=== PATIENT | female | born 1970 | race Caucasian/White ===

== ENCOUNTER 2021-06-01 05:51 | Observation (INO) ==
--- NOTE | 2021-05-17 15:04 | PAT Medication Instructions ---
Medication Instructions Date of Service May 17, 2021 Home Medications naproxen sodium 220 mg tablet (Aleve) 220 mg PO BID PRN Continue as directed naproxen sodium 220 mg tablet (Aleve) 220 mg PO BID PRN Other Notes If you have any questions please call us at [phone] or [phone] or [phone] or [phone]
--- NOTE | 2021-05-18 09:09 | Anesthesiology Consultation ---
Date of Service May 18, 2021 Assessment & Plan (1) Encounter for pre-operative examination: Chart Review Chart Review: Acceptable Risk for Surgery (pending preop Covid testing results ) and Patient seen in Pre Admission Testing - Check test AM DOS Per PAT appt on 05/18/21, patient admits to camping in [place]- social distances- does not wear mask. No known Covid positive contacts or Covid related symptoms. Pt denies known Covid in the past 90 days. Pt is NOT vaccinated for Covid. Preop Covid testing scheduled 05/30/21= will await results. Educated on importance of self quarantining, social distancing and wearing mask in public both for the patient after Covid testing done Teaching & Discussion Pre-Anesthesia Teaching/Discussion Notes: Instructed NPO after midnight before surgery,except medications with 15 cc of water. Medication instructions provided according to the [facility] guidelines. History Surgery Operation Date: 06/01/21 12:05 Proposed Procedures p C4-C7 Anterior Cervical Discectomy and Fusion, Spinal Cord Monitoring - Celso Ramirez DO Height/Weight Height: 5 ft 6.25 in Weight: 69 kg Allergies Allergy/AdvReac Type Severity Reaction Status Date / Time clindamycin Allergy Severe Difficulty Verified 05/16/21 16:37 Breathing indomethacin Allergy Severe Hives Verified 05/16/21 16:37 Penicillins Allergy Severe Anaphylaxis Verified 05/16/21 16:37 acetaminophen AdvReac Severe Vertigo, Verified 05/17/21 14:42 blurred vision, severe headache oxycodone AdvReac Mild Vomiting Verified 05/17/21 14:42 Medications Home Medications Medication Instructions Recorded Confirmed Last Taken naproxen sodium 220 mg tablet 220 mg PO BID PRN 05/16/21 05/16/21 Unknown (Aleve) Past Medical History Medical History Chronic back pain Chronic neck pain Degenerative disc disease Osteoarthritis Exercise / Class Metabolic Activity II 4-5 Yardwork/Stairs/Walk up hill (one flight of stairs - no chest pain or SOB ) Past Family History Family History Other No family history of adverse response to anesthesia Past Surgical History Surgical History History of breast biopsy History of dilatation and curettage D&E Hx of oral surgery (~1996) Insertion of 3 implants and shattered maxilla repair (from an accident) Past Anesthesia History No Hx of Anesthesia Complications (with exception to one episode of slow to wake with D&E- no reintubation or ICU stay ) and No Family Hx of Anesthesia Complications History of PONV No Hx of PONV and Hx of Motion Sickness Social History Smoking Status: Current every day smoker tobacco type: cigarettes Smoking cigarettes per day: 10 cigarettes/day Do You Dip or Chew Tobacco: No Hx Alcohol Use: Yes Alcohol type: wine alcohol intake frequency: a few times a month Hx Substance Use: No substance use type: does not use Review of Systems Patient denies chest pain, shortness of breath, dyspnea on exertion, reflux, cough, wheezing, palpitations. No hx of seizures, stroke, ME, apnea/snoring. No hx of blood clots or blood transfusions Physical Exam Vital Signs VITALS BP 124/81 P 61 TEMP 97.7 SP02 99% RESP 16 Constitutional no acute distress ENMT Mouth: no TMJ clicking Thyromental Distance: < 3.5 Finger Breadths (2.5) Mallampati Class: III Top partial Permanent upper front implant (porcelain) Neck + limited neck extension (significant ) Respiratory normal respiratory effort; no respiratory distress Auscultation: lungs clear to auscultation bilaterally; no wheezes Cardiovascular Rate/Rhythm: regular rate and regular rhythm Heart Sounds: no murmur Vessels: no carotid bruit Musculoskeletal Spine: no pain with cervical ROM Extremities: extremities normal to inspection Psychiatric Orientation: alert Lab Results Anesthesia Preop Results Results Anesthesia Widget: WBC 5.56 K/uL (4.8-10.8) 05/18/21 Hgb 15.1 g/dL (12.0-16.0) 05/18/21 Hct 44.7 % (37-47) 05/18/21 Plt 209 K/uL (130-400) 05/18/21 Na 139 mmol/L (136-145) 05/18/21 K 3.7 mmol/L (3.5-5.1) 05/18/21 Cl 109 mmol/L (98-107) H 05/18/21 CO2 24 mmol/L (21-32) 05/18/21 BUN 12 mg/dl (7-18) 05/18/21 Creat 0.62 mg/dl (0.6-1.2) 05/18/21 Glucose Level 83 mg/dl (70-99) 05/18/21 PT 10.9 Seconds (9.0-12.0) 05/18/21 PTT 25.6 Seconds (21.0-31.0) 05/18/21 INR 1.1 (0.9-1.1) 05/18/21 Urine Color Yellow 05/18/21 Urine Appearance Clear (Clear) 05/18/21 Urine pH 7.0 (4.5-7.5) 05/18/21 Urine Specific [place] 1.009 (1.000-1.030) 05/18/21 Urine Protein Negative (Negative) 05/18/21 Urine Glucose (UA) Negative (Negative) 05/18/21 Urine Ketones Negative (Negative) 05/18/21 Urine Blood 3+ (Negative) H 05/18/21 Urine Nitrite Negative (Negative) 05/18/21 Urine Bilirubin Negative (Negative) 05/18/21 Urine Urobilinogen Negative (Negative) 05/18/21 Urine Leukocyte Esterase Negative (Negative) 05/18/21 Urine WBC (Auto) 0 /hpf (0-5) 05/18/21 Urine RBC (Auto) >30 /hpf (0-4) H 05/18/21 Urine Hyaline Casts (Auto) 0 /lpf (0-5) 05/18/21 Urine Epithelial Cells (Auto) 0-5 /lpf (0-5) 05/18/21 Urine Bacteria (Auto) Negative (Negative) 05/18/21 Blood Type A Negative 05/18/21 Antibody Screen NEGATIVE 05/18/21 Testing Electrocardiogram Date: 05/18/21 Findings: + NSR @ (63bpm) Normal EKG per cardio. Chest X-Ray Date: 05/18/21 Findings: + NAD
[2021-06-01] MEDS ORDERED: VANCOMYCIN HCL 1,000 MG/270 ML BAG IV SCH (06:00)
[2021-06-01] MEDS ORDERED: GABAPENTIN 900 MG DOSE PO SCH (06:00)
[2021-06-01] MEDS ORDERED: LR 15ML/HR IV SCH (06:00)
[2021-06-01] MEDS ORDERED: CeleBREX 200 MG CAP PO SCH (06:00)
[2021-06-01] MEDS ORDERED: ACETAMINOPHEN 500 MG TAB PO SCH (06:00)
[2021-06-01] MEDS ORDERED: CLINDAMYCIN 600 MG/54 ML BAG IV SCH (06:00)
[2021-06-01 06:53] LABS: Pregnancy Test, Serum Negative (Negative)
[2021-06-01] MEDS ORDERED: PROPOFOL IV EMULSION 10 MG/ML 20 ML VIAL IV ONE (06:58)
[2021-06-01] MEDS ORDERED: LIDOCAINE 2% 2 ML VIAL/AMP(20MG/ML) INFIL ONE (06:58)
[2021-06-01] MEDS ORDERED: fentaNYL citrate 100 MCG/2 ML VIAL ONE ×2 (06:59→07:06)
[2021-06-01] MEDS ORDERED: MIDAZOLAM HCL 1 MG/ML 2ML VIAL ONE (06:59)
[2021-06-01] MEDS ORDERED: ATROPINE SULFATE 0.1 MG/ML 10ML SYR IV PRN (07:21)
[2021-06-01] MEDS ORDERED: ONDANSETRON INJ 2 MG/ML 2 ML VIAL IV PRN (07:21)
[2021-06-01] MEDS ORDERED: ePHEDrine sulfate 50 MG/ML AMP IV PRN (07:21)
--- NOTE | 2021-06-01 07:36 | History & Physical Bridge Note ---
Date of Service June 01, 2021 History & Physical Bridge Note I have examined the patient, reviewed the History & Physical and in the interval since the performance of the History & Physical I have noted the following changes of clinical significance: no changes noted
--- NOTE | 2021-06-01 07:39 | History & Physical Report ---
Date of Service June 01, 2021 Assessment & Plan (1) Myelopathy concurrent with and due to spinal stenosis of cervical region: Plan: C4-C7 anterior cervical discectomy and fusion, possible C3-C4 History of Present Illness Chief Complaint: Neck and arm pain Primary Care Provider: Teena Kwan MD This is a 51-year-old female presents above-mentioned diagnosis after failing since course of nonoperative care is here for surgical invention. Allergies Allergy/AdvReac Type Severity Reaction Status Date / Time clindamycin Allergy Severe Difficulty Verified 06/01/21 06:19 Breathing indomethacin Allergy Severe Hives Verified 06/01/21 06:19 Penicillins Allergy Severe Anaphylaxis Verified 06/01/21 06:19 acetaminophen AdvReac Severe Vertigo, Verified 06/01/21 06:19 blurred vision, severe headache oxycodone AdvReac Mild Vomiting Verified 06/01/21 06:19 Home Medications Medication Instructions Recorded Confirmed Type naproxen sodium 220 mg tablet 220 mg PO BID PRN 05/16/21 06/01/21 History (Aleve) Past Med/Surg History Medical History Chronic back pain Chronic neck pain Degenerative disc disease Osteoarthritis Surgical History History of breast biopsy History of dilatation and curettage D&E Hx of oral surgery (~1996) Insertion of 3 implants and shattered maxilla repair (from an accident) Family History Other No family history of adverse response to anesthesia Social History Smoking Status: Current every day smoker Cigarettes Per Day: 10 cigarettes/day; Second Hand Exposure: Yes; Do You Dip or Chew Tobacco: No; Tobacco Cessation Education Requested by Patient: No Hx Alcohol Use: Yes Alcohol type: wine Hx Substance Use: No Preferred Language: Bulgarian Communication Ability: Effective Quality Control Specialist Required: No Beliefs That Will Affect Care: None Current Living Situation: Spouse and Family Other Information That Helps Us Care for You: No Feels Safe at Home: Yes Safety Concerns: Feels Safe At This Time Assistive Devices Comment: upper partial Physical Exam Physical Exam: Patient is alert and oriented Heart regular in rhythm Lungs clear to auscultation Results & Data ([facility]) Vital Signs (Past 12 Hours) Vital Signs Temp Pulse Resp BP Pulse Ox 06/01/21 06:27 36.6 C 62 20 132/88 99
[2021-06-01] MEDS ORDERED: VANCOMYCIN CONSULT ACTIVE PRN (07:43)
[2021-06-01] MEDS ORDERED: VANCOMYCIN HCL 1 GM/270 ML BAG ONE (07:46)
[2021-06-01] MEDS ORDERED: ONDANSETRON INJ 2 MG/ML 2 ML VIAL ONE (08:21)
[2021-06-01] MEDS ORDERED: KETAMINE 50 MG/5 ML SYRINGE ONE (08:21)
[2021-06-01] MEDS ORDERED: DEXAMETHASONE SOD INJ 4 MG/ML VIAL ONE (08:21)
[2021-06-01] MEDS ORDERED: GLYCOPYRROLATE 0.2 MG/ML VIAL ONE ×2 (08:21→09:39)
[2021-06-01] MEDS ORDERED: FLOSEAL HEMOSTATIC MATRIX 10ML TOP ONE (09:26)
[2021-06-01] MEDS ORDERED: NEOSTIGMINE METHYLSULFATE 1 MG/ML 10ML VIAL ONE (09:39)
[2021-06-01] MEDS ORDERED: ePHEDrine sulfate 50 MG/ML SYR ONE (09:39)
[2021-06-01] MEDS ORDERED: ROCURONIUM BROMIDE 10 MG/ML 5 ML VIAL IV ONE (09:39)
--- NOTE | 2021-06-01 09:44 | Operative Report ---
Post Operative Report Pre & Post Diagnosis Operation Date: 06/01/21 07:45 Pre-Op Diagnosis: Cervical spinal stenosis with radiculopathy Post-Op Diagnosis: Same I identified the patient and participated in the time-out.: Yes Procedure Operation Date: 06/01/21 07:45 Actual Procedures #1 anterior cervical discectomy with bilateral foraminotomies C4-C5, C5-C6 and C6-C7. #2 anterior cervical arthrodesis C4-C5, C5-C6 and C6-C7. #3 placement of Spira cage filled with I factor VII millimeters at C for C5, 6 mm at C5-C6 and 8 mm at C6-C7. #4 application of aldridge plate and screws C4-C7. Surgeon Celso Ramirez, Inspector Metal Can Melanie Pryor Estimated Blood Loss 20 Findings Consistent with Post-Op Diagnosis Specimens None Indications This is a 51-year-old female presents with above-mentioned diagnosis after failing course of nonoperative care she is here for surgical invention. Description of Procedure Patient was met with identified informed consent obtained. Patient was then taken to the operative suite underwent a patient placed in a supine position on a [place] table with the head in the [place] quality control inspector heading. All bony prominences well-padded eyes inspected to ensure no external pressure placed upon the. This point the anterior cervical spine was prepped and draped in a sterile fashion. I then identified the C5-C6 disc base incision was placed on the right anterior aspect of the cervical spinal overlying this region. Blunt dissection with the assistance of bipolar electrocautery was performed down to and exposing the anterior cervical spine from C4-C7. Self-retaining retractors placed. Then performed a complete discectomy of C4-C5 out to the uncovertebral joints bilaterally. Simpson distractor pins utilized to assist in visualization. Removed all posterior annular fibers longitudinal ligament bilateral foraminotomies performed. Endplates burred to subcortically bone and 7 mm spiral cage filled with I factor tapped in position. Then proceeded to C5-C6. Again complete discectomy performed out to the uncovertebral's bilaterally. Simpson distracting pins again utilized. Removed all posterior annular fibers longitudinal limit bilateral foraminotomies performed. Then proceeded to C6-C7 and again complete discectomy was performed to the uncovertebral's bilaterally. Simpson distracting pins again utilized. Removed all posterior fibers longitudinal ligament bilateral foraminotomies performed. Endplates burred to subcortically bone and an 8 mm spira cage filled with I factor tapped in position. The appropriate sized rupali was then contoured and locked in place from C4-C7. Incision was then copiously irrigated explored to ensure no damage to surrounding structures remaining bleeding. 10 round MARCIA drain inserted. The incision was then closed with 2 Vicryl in a fashion of 4 Monocryl for final skin closure. Steri-Strip Steri-Strips placed. Patient will continue PACU stable condition. Please note spinal cord monitoring was utilized at the procedure no changes noted. Lastly Melanie Pryor was present at the entire surgery involved t he patient positioning complex portions of the surgery and final skin closure. I attest to the content of the Intraoperative Record and any orders documented therein. Any exceptions are noted below.
[2021-06-01] MEDS: fentaNYL citrate 100 MCG/2 ML VIAL IV PRN ×2 (09:57→10:02)
[2021-06-01] MEDS: HYDROmorphone INJ 2 MG/ML SYR/VIAL IV PRN ×4 (10:10→10:35)
[2021-06-01] MEDS ORDERED: HYDROmorphone INJ 1 MG/ML SYRINGE ONE (10:44)
--- NOTE | 2021-06-01 10:45 | Fluoroscopy Report ---
FL cervical 2-3V HISTORY: 51 years-old Female C4-C7 ACDF COMPARISON: None TECHNIQUE: 2 spot fluoroscopic images of the cervical spine were obtained utilizing 13.5 seconds fluo roscopy time FINDINGS: Anterior plate and screw fusion hardware with discectomy changes at C4-C7. The hardware appears intac t. No acute fracture identified. Radiopaque surgical sponge projects over the soft tissues. Endotrach eal tube. IMPRESSION: Fluoroscopic assistance as above. ACT 112: Negative or not required by law. The above report was generated using voice recognition software. It may contain grammatical, syntax o r spelling errors. Electronically signed by: Justus Barger M.D. 06/01/2021 10:43 AM
[2021-06-01] MEDS ORDERED: HYDROmorphone INJ 0.5 MG/0.5 ML SYR IV STA (10:46)
[2021-06-01] MEDS ORDERED: diphenhydrAMINE Capsule 25 MG CAP PO PRN (11:25)
[2021-06-01] MEDS ORDERED: PROMETHAZINE HCL 12.5 MG in SODIUM CHLORIDE 0.9% 50 ML IV PRN (11:25)
[2021-06-01] MEDS ORDERED: LORazepam 0.5 MG/1 ML VIAL IV PRN (11:25)
[2021-06-01] MEDS ORDERED: bisacodyL 10 MG SUPP PR PRN (11:25)
[2021-06-01] MEDS ORDERED: ACETAMINOPHEN 500 MG TAB PO PRN (11:25)
[2021-06-01] MEDS ORDERED: METOCLOPRAMIDE HCL INJ 5 MG/ML 2 ML VIAL IV PRN (11:25)
[2021-06-01] MEDS ORDERED: FAMOTIDINE 20 MG TAB PO PRN (11:25)
[2021-06-01] MEDS ORDERED: SOD PHOSPHATE/SOD BIPHOSPHATE ENEMA 132 ML BTL PR PRN (11:25)
[2021-06-01] MEDS ORDERED: ONDANSETRON 4 MG OD TAB PO PRN (11:25)
[2021-06-01] MEDS ORDERED: DO NOT ADMINISTER PNEUMOCOCCAL VACCINE PRN (11:25)
[2021-06-01] MEDS ORDERED: NALOXONE HCL 0.4 MG/1 ML VIAL/CARP IV PRN (11:25)
[2021-06-01] MEDS ORDERED: dexAMETHasone 8 MG in SYRINGE 0 ML IV PRN (11:25)
[2021-06-01] MEDS ORDERED: ACETAMINOPHEN 1,000 MG/100 ML VIAL IV PRN (11:25)
[2021-06-01] MEDS ORDERED: hydrOXYzine HCl 25 MG TAB PO PRN (11:25)
[2021-06-01] MEDS ORDERED: DO NOT ADMINISTER FLU VACCINE PRN (11:25)
[2021-06-01] MEDS ORDERED: LORazepam 0.5 MG TAB PO PRN (11:25)
[2021-06-01] MEDS ORDERED: MAGNESIUM HYDROXIDE SUSP 30 ML UDC PO PRN (11:25)
[2021-06-01] MEDS ORDERED: RACEPINEPHRINE 2.25% NEBU SOLN 0.5 ML VIAL INH PRN (11:25)
[2021-06-01] MEDS ORDERED: ALUMINUM/MAGNESIUM SUSP 30 ML UDC PO PRN (11:25)
--- NOTE | 2021-06-01 11:26 | Anesthesiology Progress Note ---
Date of Service June 01, 2021 Anesthesia Post Procedure Vital Signs Vital Signs: Temp Pulse Pulse Resp BP BP Pulse Ox 06/01/21 11:10 65 16 115/65 97 06/01/21 11:00 36.8 C 67 16 107/70 97 06/01/21 10:50 81 16 114/69 97 06/01/21 10:40 66 12 107/72 98 06/01/21 10:30 65 12 118/74 100 06/01/21 10:20 65 12 115/72 100 06/01/21 10:10 66 12 116/75 99 06/01/21 10:00 76 14 128/77 100 06/01/21 09:54 36.2 C L 86 16 122/82 98 06/01/21 06:27 36.6 C 62 20 132/88 99 Pain Intensity Posterior Neck: Pain Intensity: 4 Neck: Pain Intensity: 4 Transfer of Care Handoff Completed per policy Notes Mental Status: alert / awake / arousable and participated in evaluation Patient Amnestic to Procedure: Yes Nausea / Vomiting: adequately controlled Pain: adequately controlled Airway Patency, RR, SpO2: stable & adequate BP & HR: stable & adequate Hydration State: stable & adequate Anesthetic Complications: no major complications apparent and Pt Satisfied with anesthetic care
[2021-06-01] MEDS: LACTATED RINGER'S 1,000 ML IV SCH ×2 (12:27→22:05)
[2021-06-01] MEDS: dexAMETHasone 6 MG in SYRINGE 0 ML IV SCH ×2 (13:20→19:56)
[2021-06-01] MEDS: HYDROmorphone INJ 0.5 MG/0.5 ML SYR IV PRN ×2 (14:47→18:17)
[2021-06-01] MEDS: traMADol HCL 50 MG TABLET PO PRN (16:48)
[2021-06-01] MEDS ORDERED: VANCOMYCIN HCL 1,000 MG in SODIUM CHLORIDE 0.9% 250 ML IV SCH (18:00)
[2021-06-01] MEDS: ONDANSETRON INJ 2 MG/ML 2 ML VIAL IV PRN (18:24)
[2021-06-01] MEDS: DOCUSATE SODIUM/SENNA 50/8.6MG TAB PO SCH (19:57)
[2021-06-01] MEDS: HYDROmorphone INJ 1 MG/ML SYRINGE IV PRN (21:06)
[2021-06-02] MEDS: HYDROmorphone INJ 1 MG/ML SYRINGE IV PRN (01:29)
[2021-06-02] MEDS: dexAMETHasone 6 MG in SYRINGE 0 ML IV SCH (03:31)
[2021-06-02] MEDS: POLYETHYLENE (MIRALAX) 17 GM PACK PO SCH ×4 (05:26→23:27)
[2021-06-02] MEDS: traMADol HCL 50 MG TABLET PO PRN ×3 (07:17→18:16)
[2021-06-02] MEDS: ONDANSETRON INJ 2 MG/ML 2 ML VIAL IV PRN ×2 (07:17→14:42)
--- NOTE | 2021-06-02 08:31 | Orthopedic Progress Note ---
Date of Service June 02, 2021 Assessment & Plan (1) Myelopathy concurrent with and due to spinal stenosis of cervical region: Plan: Patient will be discharged home today. DC MARCIA drain and dressing change prior to discharge. Admission and Anticipated Discharge Date Admission Date: June 01, 2021 Supervising Physician Co-Signing Physician Notes Dr. Celso Ramirez Subjective Patient is postoperative day 1 multilevel cervical fusion. Arm symptoms improved. Complains of posterior cervicalgia. Mild dysphagia. Tolerating a liquid diet. She is been up and ambulatory to the restroom. MARCIA drain output last shift was 0 Review of Systems Review of Systems: See HPI Physical Exam Physical Exam: Alert and oriented x3. [place] J collar intact Dressing has a dime size amount of drainage on it with functioning MARCIA drain Motor testing is 5 5 bilateral biceps, triceps, deltoid Calves are soft and nontender bilaterally Results & Data ([facility]) Vital Signs (Past 12 Hours) Vital Signs Temp Pulse Resp BP Pulse Ox 06/02/21 07:26 36.9 C 72 16 124/82 99 06/02/21 07:25 73 15 95 06/02/21 05:20 36.5 C 65 18 118/75 94 06/02/21 03:23 36.9 C 83 16 115/74 94 06/02/21 02:13 63 12 96 06/02/21 01:20 36.6 C 66 18 117/76 95 06/02/21 00:16 73 18 98 06/01/21 23:24 36.5 C 62 16 117/75 97 06/01/21 21:10 36.5 C 72 16 116/73 97
--- NOTE | 2021-06-02 08:46 | Discharge Summary ---
Date of Service June 02, 2021 Admission HPI Per Admitting Provider This is a 51-year-old female presents above-mentioned diagnosis after failing since course of nonoperative care is here for surgical invention. Admission Exam (Per Admitting) Constitutional WD/WN, vitals as above Eyes normal visual ellis by confrontation ENMT external ear and nose normal, oropharynx normal Neck normal visual inspection Respiratory normal respiratory effort Cardiovascular Extremities: normal capillary refill Gastrointestinal (Abdomen) Inspection/Auscultation: abdomen normal to inspection Musculoskeletal Extremities: extremities normal to inspection and strength 5/5 throughout Skin no rashes, warm and dry Neurologic moves all extremities Psychiatric A+Ox3, euthymic affect Discharge Data Procedures Performed Operation Date: 06/01/21 07:45 Actual Procedures p C4-C7 Anterior Cervical Discectomy and Fusion, Spinal Cord Monitoring(Not Applicable) - Celso Ramirez, Hospital Course (1) Myelopathy concurrent with and due to spinal stenosis of cervical region: Patient had an uncomplicated postoperative hospital course status post A CDF C4-C7 by Dr. Ramirez. She is being discharged home postoperative day 1. Upper extremity symptoms greatly improved. Mild dysphagia. Tolerating a liquid diet. She is urinating without issue. She is up and ambulatory. MARCIA drain output is 0. Discharge Instructions ACTIVITY RECOMMENDATIONS: SELF CARE INSTRUCTIONS AFTER CERVICAL FUSIONS 1. No smoking. Smoking drastically decreases the chance of a solid fusion. 2. No bending, lifting more than 5 pounds, or twisting (roll like a log when turning in bed). 3. You may shower 3 days after surgery. Thoroughly dry wound. Do not soak in the tub. 4. Cervical collar: Must be worn at all times including sleeping. You may remove the brace only to bath, eat and if you are sitting in a recliner. 5. Please walk as much as you can for exercise. Gradually increase the distance that you walk as your endurance increases. SPECIAL CARE INSTRUCTIONS: VERY IMPORTANT TO READ AND REVIEW A. Do not take any anti-inflammatory medications (i.e. Indocin, Advil, Aspirin, Naprosyn, Aleve, Motrin, etc.) as these may inhibit the chance of a solid fusion. Tylenol is okay to take. B. Your surgical incision has been closed with a cosmetic suture under the skin that will dissolve in about 6 weeks. In 14 days, you can use a pair of clean scissors and cut the suture that is left outside of the skin at the ends of your incision. C. Complications are uncommon, but please contact us if you have any signs or symptoms of: 1. wound infection (fever higher than 102.5 degrees F, redness, separation of wound, drainage, or increasing pain from the incision) 2. blood clots in legs (pain, swelling, redness and warmth in legs) 3. urinary tract infection (fever higher than 102.5 degrees, burning upon urination or increased frequency of urination) 4. nerve problems (inability to walk on your toes or heels, numbness, loss of bowel or bladder control) 5. any other symptoms that concern you. D. Please call the office at if you have any concerns or questions about your operation or recovery. MANAGING PAIN AFTER SPINAL SURGERY 1. Narcotic medication is intended for short-term use and will be provided for surgical pain. Surgical pain usually lasts for a period of 4-6 weeks. Narcotic medication includes Percocet, Vicodin, Darvocet, Tylenol #3 or Lortab. 2. Longer-term pain is more appropriately treated with non-narcotic medication such as Tylenol ES. 3. Muscle spasm is not appropriately treated with narcotics. Muscle relaxers such as Soma, Flexeril or Skelaxin can be used along with Tylenol ES. 4. Remember that we all live with some "aches and pains". This is not unusual or uncommon after an injury or as we get older. 5. We will provide appropriate medication within the normal guidelines of their prescribed use. We will also be very cautious and aware of potential abuse and extended duration of patients' medication needs. 6. Please allow 2-3 days to process refills. Prescriptions will not be mailed but must be picked up at the office. FOLLOW UP VISIT: Keep your scheduled follow-up appointment. Any questions, please call the office at . Supervising Physician Co-Signing Physician Notes Dr. Celso Ramirez
[2021-06-02] MEDS: HYDROmorphone INJ 0.5 MG/0.5 ML SYR IV PRN (10:33)
[2021-06-02] MEDS: DOCUSATE SODIUM/SENNA 50/8.6MG TAB PO SCH (21:21)
[2021-06-03] MEDS: traMADol HCL 50 MG TABLET PO PRN ×2 (01:29→07:22)
[2021-06-03] MEDS: POLYETHYLENE (MIRALAX) 17 GM PACK PO SCH (05:35)
--- NOTE | 2021-06-03 09:54 | Orthopedic Progress Note ---
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 Admission and Anticipated Discharge Date Admission Date: June 01, 2021 Subjective Patient's neck pain is markedly improved today. She swallowing well. No hoarseness. Arm symptoms improved. Physical Exam Physical Exam: Exam she is comfortable. Is good strength testing. Results & Data ([facility]) Vital Signs (Past 12 Hours) Vital Signs Temp Pulse Resp BP Pulse Ox 06/03/21 07:38 36.5 C 63 14 128/87 95 06/03/21 07:04 63 14 95 06/03/21 07:01 36.5 C 64 16 128/87 94 06/03/21 05:31 36.9 C 72 18 123/85 94 06/03/21 03:20 36.7 C 69 18 129/85 92 06/03/21 03:05 72 16 94 06/03/21 01:25 36.8 C 67 16 125/82 94 06/02/21 23:24 36.8 C 63 16 113/75 94 06/02/21 22:23 69 18 91
[2021-06-03] MEDS: ONDANSETRON INJ 2 MG/ML 2 ML VIAL IV PRN (10:26)
== END 2021-06-03 13:30 | disposition home or self-care (01) ==
LOC: ASU 05:51 → INTOOBSV 09:47 → 3E 09:47